=== PATIENT | male | born 1935 | race Caucasian/White ===

== ENCOUNTER 2023-10-15 18:57 | Inpatient (IN) | payer MEDICARE, OTHER ==
[~2023-10-15] VITALS: Ht 182.9 cm; Wt 72.3 kg
[2023-10-15] MEDS: NS 1,000 ML IV SCH (20:01)
[2023-10-15 20:09] LABS: BASO % 0.3 % (0.0-1.0); EOS # 0.1 10^3/uL (0.0-0.5); EOS % 0.9 % (0.0-3.0); HEMATOCRIT 38.6 % (42.0-52.0); HEMOGLOBIN 12.1 g/dl (13.5-17.5); LYMPH # 1.1 10^3/uL (1.5-5.0); LYMPH % 12.3 % (24.0-44.0); MEAN CORPUSCULAR HEMOGLOBIN 29.7 pg (27.0-33.0); MEAN CORPUSCULAR HGB CONC 31.3 g/dl (32.0-36.5); MEAN CORPUSCULAR VOLUME 94.6 fl (80.0-96.0); MONO # 0.6 10^3/uL (0.0-0.8); MONO % 6.6 % (2.0-8.0); NEUTROPHILS # 7.3 10^3/uL (1.5-8.5); NEUTROPHILS % 78.6 % (36.0-66.0); PLATELET COUNT, AUTOMATED 216 10^3/uL (150-450); RED BLOOD COUNT 4.08 10^6/uL (4.30-6.10); WHITE BLOOD COUNT 9.3 10^3/uL (4.0-10.0)
[2023-10-15 20:21] LABS: INR 1.53; PARTIAL THROMBOPLASTIN TIME 43.4 SECONDS (24.8-34.2); PROTHROMBIN TIME 17.9 SECONDS (12.5-14.5)
[2023-10-15 20:28] LABS: CK-MB VALUE MASS < 1.0 NG/ML (<3.6)
[2023-10-15 20:31] LABS: BLOOD UREA NITROGEN 53 MG/DL (9-23); CALCIUM LEVEL 8.6 MG/DL (8.3-10.6); CARBON DIOXIDE LEVEL 30 MMOL/L (20-31); CHLORIDE LEVEL 107 MMOL/L (98-107); CPK CREATINE PHOSPHOKINASE 26 U/L (46-171); CREATININE FOR GFR 1.77 MG/DL (0.70-1.30); GLOMERULAR FILTRATION RATE 38.9 (>35); GLUCOSE, FASTING 135 MG/DL (74-106); MB/CK RELATIVE INDEX 3.84 (< OR =4); POTASSIUM SERUM 3.7 MMOL/L (3.5-5.1); SODIUM LEVEL 141 MMOL/L (136-145)
[2023-10-15 21:29] LABS: CK-MB VALUE MASS < 1.0 NG/ML (<3.6)
[2023-10-15 21:30] LABS: CPK CREATINE PHOSPHOKINASE 24 U/L (46-171); MB/CK RELATIVE INDEX 4.16 (< OR =4)
[2023-10-15 22:06] VITALS: O2SAT 95
[2023-10-15] MEDS ORDERED: MAALOX 30 ML SUSP *UDC PO PRN (22:50)
[2023-10-15] MEDS ORDERED: GABA-1171 PO (23:16)
[2023-10-15] MEDS ORDERED: MEMA10TA PO (23:16)
[2023-10-15] MEDS ORDERED: FLOM0.4C39 PO (23:25)
[2023-10-15] MEDS ORDERED: ACET325C5 PO (23:25)
[2023-10-15] MEDS ORDERED: OCUV1CHW PO (23:25)
[2023-10-15] MEDS ORDERED: QUET1TAB17 PO ×2 (23:25→23:27)
[2023-10-15] MEDS ORDERED: FINA5TAB2 PO (23:25)
[2023-10-15] MEDS ORDERED: ELIQ2.5T PO (23:25)
[2023-10-15] MEDS ORDERED: HOME MED LIST COMPLETE! XX SCH (23:30)
[2023-10-15] MEDS ORDERED: QUEtiapine FUMARATE 25 MG TAB PO PRN (23:55)
[2023-10-16] VITALS (7 sets, daily range): BP systolic 92–152; BP diastolic 58–71; TEMP 96.8–97.5; O2SAT 96–98
[2023-10-16] MEDS: TAMSULOSIN 0.4 MG CAP PO SCH (08:54)
[2023-10-16] MEDS: FINASTERIDE 5MG TAB PO SCH (08:54)
[2023-10-16] MEDS: APIXABAN 2.5 MG TAB (ELIQUIS) PO SCH (08:54)
[2023-10-16] MEDS: QUEtiapine FUMARATE 25 MG TAB PO SCH (08:55)
[2023-10-16 12:47] LABS: BLOOD UREA NITROGEN 40 MG/DL (9-23); CALCIUM LEVEL 8.3 MG/DL (8.3-10.6); CARBON DIOXIDE LEVEL 27 MMOL/L (20-31); CHLORIDE LEVEL 111 MMOL/L (98-107); CREATININE FOR GFR 1.16 MG/DL (0.70-1.30); GLOMERULAR FILTRATION RATE > 60.0 (>35); GLUCOSE, FASTING 91 MG/DL (74-106); POTASSIUM SERUM 3.6 MMOL/L (3.5-5.1); SODIUM LEVEL 140 MMOL/L (136-145)
[2023-10-16] MEDS: ERYTHROMYCIN OPHTH OINT OU SCH (15:15)
[2023-10-17] VITALS (10 sets, daily range): BP systolic 112–148; BP diastolic 56–71; TEMP 97.5–98; O2SAT 93–98
[2023-10-17 05:50] LABS: HEMATOCRIT 34.2 % (42.0-52.0); HEMOGLOBIN 11.1 g/dl (13.5-17.5); MEAN CORPUSCULAR HEMOGLOBIN 30.2 pg (27.0-33.0); MEAN CORPUSCULAR HGB CONC 32.5 g/dl (32.0-36.5); MEAN CORPUSCULAR VOLUME 92.9 fl (80.0-96.0); PLATELET COUNT, AUTOMATED 206 10^3/uL (150-450); RED BLOOD COUNT 3.68 10^6/uL (4.30-6.10); WHITE BLOOD COUNT 8.3 10^3/uL (4.0-10.0)
[2023-10-17 06:21] LABS: BLOOD UREA NITROGEN 26 MG/DL (9-23); CALCIUM LEVEL 8.2 MG/DL (8.3-10.6); CARBON DIOXIDE LEVEL 25 MMOL/L (20-31); CHLORIDE LEVEL 112 MMOL/L (98-107); CREATININE FOR GFR 0.89 MG/DL (0.70-1.30); GLOMERULAR FILTRATION RATE > 60.0 (>35); GLUCOSE, FASTING 76 MG/DL (74-106); MAGNESIUM LEVEL 1.6 MG/DL (1.8-2.4); POTASSIUM SERUM 3.8 MMOL/L (3.5-5.1); SODIUM LEVEL 144 MMOL/L (136-145)
[2023-10-17] MEDS: MAG SULF 1GM/100ML (MAG RUN) 1 GM in IV 1 EA IV SCH (06:43)
[2023-10-17] MEDS: cefTRIAXone SOD 1 GM in D5W MINI-BAG PLUS 50 ML IV SCH (10:22)
[2023-10-18] VITALS: BP 115/60; TEMP 98.2; O2SAT 95
[2023-10-18 03:20] VITALS: BP 122/59; TEMP 98.1; O2SAT 94
[2023-10-18 05:57] LABS: HEMATOCRIT 32.3 % (42.0-52.0); HEMOGLOBIN 10.4 g/dl (13.5-17.5); MEAN CORPUSCULAR HEMOGLOBIN 30.2 pg (27.0-33.0); MEAN CORPUSCULAR HGB CONC 32.2 g/dl (32.0-36.5); MEAN CORPUSCULAR VOLUME 93.9 fl (80.0-96.0); PLATELET COUNT, AUTOMATED 192 10^3/uL (150-450); RED BLOOD COUNT 3.44 10^6/uL (4.30-6.10); WHITE BLOOD COUNT 8.3 10^3/uL (4.0-10.0)
[2023-10-18 06:21] LABS: BLOOD UREA NITROGEN 14 MG/DL (9-23); CARBON DIOXIDE LEVEL 26 MMOL/L (20-31); CHLORIDE LEVEL 111 MMOL/L (98-107); CREATININE FOR GFR 0.76 MG/DL (0.70-1.30); GLOMERULAR FILTRATION RATE > 60.0 (>35); GLUCOSE, FASTING 68 MG/DL (74-106); MAGNESIUM LEVEL 1.7 MG/DL (1.8-2.4); POTASSIUM SERUM 3.7 MMOL/L (3.5-5.1); SODIUM LEVEL 142 MMOL/L (136-145)
[2023-10-18 08:00] VITALS: BP 116/57; TEMP 98.6; O2SAT 97
[2023-10-18] MEDS: MAG SULF 1GM/100ML (MAG RUN) 1 GM in IV 1 EA IV ONE (09:52)
[2023-10-18 11:22] LABS: VENOUS BASE EXCESS -2.9 (-2.0-2.0); VENOUS HCO3 21.4 MMOL/L (23.0-27.0); VENOUS O2 SATURATION 98.5 % (60.0-80.0); VENOUS PARTIAL PRESSURE CO2 35.9 mmHg (38.0-50.0); VENOUS PARTIAL PRESSURE O2 134.2 mmHg (30.0-50.0); VENOUS PH 7.394 UNITS (7.330-7.430); VENOUS TOTAL CO2 22.5 MMOL/L (24.0-28.0)
[2023-10-18 12:00] VITALS: BP 112/57; TEMP 98.6; O2SAT 95
[2023-10-18] MEDS: D5W/0.45% SODIUM CHLORIDE 1,000 ML IV SCH (14:32)
[2023-10-18] MEDS: DEXTROSE 50% 50ML SYRINGE IV STA (14:32)
[2023-10-18 18:00] VITALS: BP 142/64; TEMP 97.3; O2SAT 92
[2023-10-18 21:10] VITALS: BP 141/63; TEMP 97.7; O2SAT 94
[2023-10-19 01:55] VITALS: BP 139/63; TEMP 97.5; O2SAT 94
[2023-10-19 04:10] VITALS: BP 141/64; TEMP 97.7; O2SAT 94
[2023-10-19 05:39] LABS: HEMATOCRIT 31.6 % (42.0-52.0); MEAN CORPUSCULAR HEMOGLOBIN 29.5 pg (27.0-33.0); MEAN CORPUSCULAR HGB CONC 31.6 g/dl (32.0-36.5); MEAN CORPUSCULAR VOLUME 93.2 fl (80.0-96.0); PLATELET COUNT, AUTOMATED 179 10^3/uL (150-450); RED BLOOD COUNT 3.39 10^6/uL (4.30-6.10); WHITE BLOOD COUNT 5.3 10^3/uL (4.0-10.0)
[2023-10-19 06:05] LABS: BLOOD UREA NITROGEN 9 MG/DL (9-23); CALCIUM LEVEL 7.9 MG/DL (8.3-10.6); CARBON DIOXIDE LEVEL 24 MMOL/L (20-31); CHLORIDE LEVEL 111 MMOL/L (98-107); CREATININE FOR GFR 0.71 MG/DL (0.70-1.30); GLOMERULAR FILTRATION RATE > 60.0 (>35); GLUCOSE, FASTING 109 MG/DL (74-106); MAGNESIUM LEVEL 1.8 MG/DL (1.8-2.4); POTASSIUM SERUM 3.3 MMOL/L (3.5-5.1); SODIUM LEVEL 141 MMOL/L (136-145)
[2023-10-19] MEDS ORDERED: POTASSIUM CHLORIDE 10% LIQ 20MEQ/15ML UDC PO ONE (08:00)
[2023-10-19] MEDS: KCL 10MEQ/100ML SWI (KRUN) 10 MEQ in IV 1 EA IV SCH (08:12)
[2023-10-19] MEDS: POTASSIUM CHLORIDE 10MEQ SR TABLET PO ONE (09:00)
[2023-10-19] MEDS: OLOPATADINE 0.1% OPHTH SOL 5ML(PATANOL) OU SCH (09:00)
[2023-10-19] MEDS: VANICREAM MOISTURIZING SKIN CREAM 113GM TUBE TOP SCH (10:50)
[2023-10-19 12:00] VITALS: BP 82/44; TEMP 97.5; O2SAT 93
[2023-10-19] MEDS: ARTIFICIAL TEARS DROPS 15ML BTL (VISINE DRY RELIEF) OU SCH (12:55)
[2023-10-19 14:26] VITALS: BP 103/59
[2023-10-19 20:00] VITALS: BP 123/70; TEMP 97.9; O2SAT 93
[2023-10-20 04:00] VITALS: BP 117/57; TEMP 97.9; O2SAT 95
[2023-10-20 07:17] LABS: HEMATOCRIT 32.1 % (42.0-52.0); HEMOGLOBIN 10.6 g/dl (13.5-17.5); MEAN CORPUSCULAR HEMOGLOBIN 30.5 pg (27.0-33.0); MEAN CORPUSCULAR VOLUME 92.2 fl (80.0-96.0); PLATELET COUNT, AUTOMATED 193 10^3/uL (150-450); RED BLOOD COUNT 3.48 10^6/uL (4.30-6.10); WHITE BLOOD COUNT 7.1 10^3/uL (4.0-10.0)
[2023-10-20 07:48] LABS: BLOOD UREA NITROGEN 11 MG/DL (9-23); CALCIUM LEVEL 8.4 MG/DL (8.3-10.6); CARBON DIOXIDE LEVEL 25 MMOL/L (20-31); CHLORIDE LEVEL 111 MMOL/L (98-107); CREATININE FOR GFR 0.75 MG/DL (0.70-1.30); GLOMERULAR FILTRATION RATE > 60.0 (>35); GLUCOSE, FASTING 90 MG/DL (74-106); POTASSIUM SERUM 4.1 MMOL/L (3.5-5.1); SODIUM LEVEL 142 MMOL/L (136-145)
[2023-10-20] MEDS: ACETAMINOPHEN TAB 650MG DOSE (2X325MG) PO PRN (13:50)
[2023-10-20 20:00] VITALS: BP 138/76; TEMP 97.7; O2SAT 96
[2023-10-21 04:50] VITALS: BP 140/72; TEMP 97.7; O2SAT 96
[2023-10-21 06:04] LABS: HEMATOCRIT 32.8 % (42.0-52.0); HEMOGLOBIN 10.6 g/dl (13.5-17.5); MEAN CORPUSCULAR HEMOGLOBIN 30.1 pg (27.0-33.0); MEAN CORPUSCULAR HGB CONC 32.3 g/dl (32.0-36.5); MEAN CORPUSCULAR VOLUME 93.2 fl (80.0-96.0); PLATELET COUNT, AUTOMATED 201 10^3/uL (150-450); RED BLOOD COUNT 3.52 10^6/uL (4.30-6.10); WHITE BLOOD COUNT 7.6 10^3/uL (4.0-10.0)
[2023-10-21 06:33] LABS: BLOOD UREA NITROGEN 10 MG/DL (9-23); CALCIUM LEVEL 8.3 MG/DL (8.3-10.6); CARBON DIOXIDE LEVEL 27 MMOL/L (20-31); CHLORIDE LEVEL 108 MMOL/L (98-107); GLOMERULAR FILTRATION RATE > 60.0 (>35); GLUCOSE, FASTING 66 MG/DL (74-106); POTASSIUM SERUM 3.9 MMOL/L (3.5-5.1); SODIUM LEVEL 140 MMOL/L (136-145)
[2023-10-21 12:00] VITALS: BP 120/68; TEMP 97.9; O2SAT 87
[2023-10-21 20:00] VITALS: BP 129/64; TEMP 97.7; O2SAT 98
[2023-10-22 04:00] VITALS: BP 110/70; TEMP 97.7; O2SAT 94
[2023-10-22 06:03] LABS: HEMATOCRIT 30.4 % (42.0-52.0); HEMOGLOBIN 9.8 g/dl (13.5-17.5); MEAN CORPUSCULAR HEMOGLOBIN 30.1 pg (27.0-33.0); MEAN CORPUSCULAR HGB CONC 32.2 g/dl (32.0-36.5); MEAN CORPUSCULAR VOLUME 93.3 fl (80.0-96.0); PLATELET COUNT, AUTOMATED 185 10^3/uL (150-450); RED BLOOD COUNT 3.26 10^6/uL (4.30-6.10)
[2023-10-22 06:26] LABS: BLOOD UREA NITROGEN 10 MG/DL (9-23); CARBON DIOXIDE LEVEL 28 MMOL/L (20-31); CHLORIDE LEVEL 109 MMOL/L (98-107); CREATININE FOR GFR 0.87 MG/DL (0.70-1.30); GLOMERULAR FILTRATION RATE > 60.0 (>35); GLUCOSE, FASTING 80 MG/DL (74-106); MAGNESIUM LEVEL 1.6 MG/DL (1.8-2.4); SODIUM LEVEL 140 MMOL/L (136-145)
[2023-10-22] MEDS: MAG SULF 1GM/100ML (MAG RUN) 1 GM in IV 1 EA IV SCH (07:46)
[2023-10-22 12:00] VITALS: BP 100/60; TEMP 97.2; O2SAT 90
[2023-10-22 19:30] VITALS: BP 106/56; TEMP 97.5; O2SAT 95
[2023-10-23 03:30] VITALS: BP 105/57; TEMP 97.5; O2SAT 96
[2023-10-23 05:03] LABS: HEMATOCRIT 29.4 % (42.0-52.0); HEMOGLOBIN 9.5 g/dl (13.5-17.5); MEAN CORPUSCULAR HEMOGLOBIN 30.4 pg (27.0-33.0); MEAN CORPUSCULAR HGB CONC 32.3 g/dl (32.0-36.5); MEAN CORPUSCULAR VOLUME 94.2 fl (80.0-96.0); PLATELET COUNT, AUTOMATED 212 10^3/uL (150-450); RED BLOOD COUNT 3.12 10^6/uL (4.30-6.10); WHITE BLOOD COUNT 6.2 10^3/uL (4.0-10.0)
[2023-10-23 05:31] LABS: BLOOD UREA NITROGEN 13 MG/DL (9-23); CALCIUM LEVEL 8.2 MG/DL (8.3-10.6); CARBON DIOXIDE LEVEL 25 MMOL/L (20-31); CHLORIDE LEVEL 110 MMOL/L (98-107); CREATININE FOR GFR 0.82 MG/DL (0.70-1.30); GLOMERULAR FILTRATION RATE > 60.0 (>35); GLUCOSE, FASTING 79 MG/DL (74-106); POTASSIUM SERUM 4.1 MMOL/L (3.5-5.1); SODIUM LEVEL 139 MMOL/L (136-145)
[2023-10-23] MEDS: GABAPENTIN 100 MG CAP PO PRN (08:44)
[2023-10-23 10:43] LABS: ALBUMIN 1.9 G/DL (3.2-5.2)
[2023-10-23] MEDS: MAGNESIUM OXIDE 400MG TAB (MAG-OX) PO SCH (11:30)
[2023-10-23 12:00] VITALS: BP 95/56; TEMP 97.5; O2SAT 95
[2023-10-23 19:48] VITALS: BP 135/64; TEMP 97.5; O2SAT 97
[2023-10-24 04:00] VITALS: BP 129/63; TEMP 97.5; O2SAT 96
[2023-10-24 06:03] LABS: HEMATOCRIT 31.4 % (42.0-52.0); MEAN CORPUSCULAR HEMOGLOBIN 29.9 pg (27.0-33.0); MEAN CORPUSCULAR HGB CONC 31.8 g/dl (32.0-36.5); MEAN CORPUSCULAR VOLUME 93.7 fl (80.0-96.0); PLATELET COUNT, AUTOMATED 216 10^3/uL (150-450); RED BLOOD COUNT 3.35 10^6/uL (4.30-6.10); WHITE BLOOD COUNT 4.3 10^3/uL (4.0-10.0)
[2023-10-24 06:26] LABS: BLOOD UREA NITROGEN 14 MG/DL (9-23); CALCIUM LEVEL 8.4 MG/DL (8.3-10.6); CARBON DIOXIDE LEVEL 28 MMOL/L (20-31); CHLORIDE LEVEL 109 MMOL/L (98-107); CREATININE FOR GFR 0.87 MG/DL (0.70-1.30); GLOMERULAR FILTRATION RATE > 60.0 (>35); GLUCOSE, FASTING 81 MG/DL (74-106); POTASSIUM SERUM 4.1 MMOL/L (3.5-5.1); SODIUM LEVEL 141 MMOL/L (136-145)
[2023-10-24 12:00] VITALS: BP 93/52; TEMP 97.3; O2SAT 95
[2023-10-24 16:12] VITALS: BP 120/62; TEMP 98.1; O2SAT 94
[2023-10-24 20:26] VITALS: BP 111/63; TEMP 97.7; O2SAT 96
[2023-10-25 04:09] VITALS: BP 95/50; TEMP 97.9; O2SAT 92
[2023-10-25 08:18] LABS: BASO % 0.4 % (0.0-1.0); EOS # 0.1 10^3/uL (0.0-0.5); EOS % 2.8 % (0.0-3.0); HEMATOCRIT 28.7 % (42.0-52.0); HEMOGLOBIN 9.4 g/dl (13.5-17.5); LYMPH # 1.4 10^3/uL (1.5-5.0); LYMPH % 28.3 % (24.0-44.0); MEAN CORPUSCULAR HEMOGLOBIN 30.9 pg (27.0-33.0); MEAN CORPUSCULAR HGB CONC 32.8 g/dl (32.0-36.5); MEAN CORPUSCULAR VOLUME 94.4 fl (80.0-96.0); MONO # 0.6 10^3/uL (0.0-0.8); MONO % 11.1 % (2.0-8.0); NEUTROPHILS # 2.9 10^3/uL (1.5-8.5); NEUTROPHILS % 56.6 % (36.0-66.0); PLATELET COUNT, AUTOMATED 232 10^3/uL (150-450); RED BLOOD COUNT 3.04 10^6/uL (4.30-6.10); WHITE BLOOD COUNT 5.1 10^3/uL (4.0-10.0)
[2023-10-25 09:06] LABS: BLOOD UREA NITROGEN 15 MG/DL (9-23); CALCIUM LEVEL 8.5 MG/DL (8.3-10.6); CARBON DIOXIDE LEVEL 29 MMOL/L (20-31); CHLORIDE LEVEL 109 MMOL/L (98-107); CREATININE FOR GFR 0.82 MG/DL (0.70-1.30); GLOMERULAR FILTRATION RATE > 60.0 (>35); GLUCOSE, FASTING 79 MG/DL (74-106); MAGNESIUM LEVEL 1.9 MG/DL (1.8-2.4); SODIUM LEVEL 139 MMOL/L (136-145)
[2023-10-25 12:00] VITALS: BP 108/90; TEMP 97.3; O2SAT 94
[2023-10-25] MEDS: MIRTAZAPINE 7.5MG PER 1/2 TABLET PO SCH (18:03)
[2023-10-25 19:30] VITALS: BP 120/60; TEMP 97.7; O2SAT 95
[2023-10-26 04:00] VITALS: BP 126/62; TEMP 98.1; O2SAT 92
[2023-10-26 05:33] LABS: BASO % 0.4 % (0.0-1.0); EOS # 0.2 10^3/uL (0.0-0.5); EOS % 2.4 % (0.0-3.0); HEMATOCRIT 32.3 % (42.0-52.0); HEMOGLOBIN 10.3 g/dl (13.5-17.5); LYMPH # 1.5 10^3/uL (1.5-5.0); LYMPH % 21.7 % (24.0-44.0); MEAN CORPUSCULAR HEMOGLOBIN 30.3 pg (27.0-33.0); MEAN CORPUSCULAR HGB CONC 31.9 g/dl (32.0-36.5); MONO # 0.6 10^3/uL (0.0-0.8); MONO % 8.9 % (2.0-8.0); NEUTROPHILS # 4.5 10^3/uL (1.5-8.5); NEUTROPHILS % 65.9 % (36.0-66.0); PLATELET COUNT, AUTOMATED 253 10^3/uL (150-450); WHITE BLOOD COUNT 6.8 10^3/uL (4.0-10.0)
[2023-10-26 06:00] LABS: BLOOD UREA NITROGEN 15 MG/DL (9-23); CALCIUM LEVEL 8.9 MG/DL (8.3-10.6); CARBON DIOXIDE LEVEL 30 MMOL/L (20-31); CHLORIDE LEVEL 107 MMOL/L (98-107); CREATININE FOR GFR 0.93 MG/DL (0.70-1.30); GLOMERULAR FILTRATION RATE > 60.0 (>35); GLUCOSE, FASTING 74 MG/DL (74-106); POTASSIUM SERUM 5.2 MMOL/L (3.5-5.1); SODIUM LEVEL 140 MMOL/L (136-145)
[2023-10-26] MEDS ORDERED: IPRATROPIUM 0.5MG/ALBUTEROL 2.5MG INH SOL UD 3ML (DUONEB) NEB PRN (08:40)
[2023-10-26] MEDS ORDERED: guaiFENesin ER TABLET 600 MG TAB PO SCH (09:00)
[2023-10-26] MEDS: SOD POLYSTYRENE SULFONATE SUSP 15GM 60ML UD PO ONE (09:34)
[2023-10-26] MEDS: IPRATROPIUM 0.5MG/ALBUTEROL 2.5MG INH SOL UD 3ML (DUONEB) NEB SCH (10:08)
[2023-10-26 10:58] VITALS: BP 128/69; TEMP 97.7; O2SAT 95
[2023-10-26 12:03] VITALS: BP 92/48; TEMP 97.7; O2SAT 95
[2023-10-26] MEDS: guaiFENesin SYRUP 200MG 10ML UDC PO SCH (12:55)
[2023-10-26 20:00] VITALS: BP 117/55; TEMP 97.7; O2SAT 97
[2023-10-27 03:20] VITALS: BP 112/59; TEMP 97.9; O2SAT 90
[2023-10-27 05:43] LABS: BASO % 0.4 % (0.0-1.0); EOS # 0.1 10^3/uL (0.0-0.5); EOS % 1.8 % (0.0-3.0); HEMATOCRIT 34.2 % (42.0-52.0); HEMOGLOBIN 10.9 g/dl (13.5-17.5); LYMPH # 1.4 10^3/uL (1.5-5.0); LYMPH % 20.2 % (24.0-44.0); MEAN CORPUSCULAR HGB CONC 31.9 g/dl (32.0-36.5); MEAN CORPUSCULAR VOLUME 94.2 fl (80.0-96.0); MONO # 0.6 10^3/uL (0.0-0.8); MONO % 8.4 % (2.0-8.0); NEUTROPHILS # 4.5 10^3/uL (1.5-8.5); NEUTROPHILS % 67.6 % (36.0-66.0); PLATELET COUNT, AUTOMATED 258 10^3/uL (150-450); RED BLOOD COUNT 3.63 10^6/uL (4.30-6.10); WHITE BLOOD COUNT 6.7 10^3/uL (4.0-10.0)
[2023-10-27 06:11] LABS: BLOOD UREA NITROGEN 14 MG/DL (9-23); CALCIUM LEVEL 8.9 MG/DL (8.3-10.6); CARBON DIOXIDE LEVEL 30 MMOL/L (20-31); CHLORIDE LEVEL 103 MMOL/L (98-107); CREATININE FOR GFR 0.86 MG/DL (0.70-1.30); GLOMERULAR FILTRATION RATE > 60.0 (>35); GLUCOSE, FASTING 73 MG/DL (74-106); POTASSIUM SERUM 4.6 MMOL/L (3.5-5.1); SODIUM LEVEL 137 MMOL/L (136-145)
[2023-10-27 12:00] VITALS: BP 109/60; TEMP 97.7; O2SAT 94
[2023-10-27 19:40] VITALS: BP 129/75; TEMP 97.3; O2SAT 95
[2023-10-28 04:00] VITALS: BP 122/73; TEMP 97.1; O2SAT 93
[2023-10-28 06:06] LABS: BASO % 0.4 % (0.0-1.0); EOS # 0.2 10^3/uL (0.0-0.5); EOS % 2.6 % (0.0-3.0); LYMPH # 1.2 10^3/uL (1.5-5.0); LYMPH % 16.4 % (24.0-44.0); MEAN CORPUSCULAR HEMOGLOBIN 29.7 pg (27.0-33.0); MEAN CORPUSCULAR HGB CONC 31.4 g/dl (32.0-36.5); MEAN CORPUSCULAR VOLUME 94.6 fl (80.0-96.0); MONO # 0.8 10^3/uL (0.0-0.8); MONO % 10.8 % (2.0-8.0); NEUTROPHILS % 68.4 % (36.0-66.0); PLATELET COUNT, AUTOMATED 255 10^3/uL (150-450); WHITE BLOOD COUNT 7.2 10^3/uL (4.0-10.0)
[2023-10-28 06:33] LABS: BLOOD UREA NITROGEN 21 MG/DL (9-23); CALCIUM LEVEL 8.8 MG/DL (8.3-10.6); CARBON DIOXIDE LEVEL 28 MMOL/L (20-31); CHLORIDE LEVEL 103 MMOL/L (98-107); CREATININE FOR GFR 0.96 MG/DL (0.70-1.30); GLOMERULAR FILTRATION RATE > 60.0 (>35); GLUCOSE, FASTING 74 MG/DL (74-106); MAGNESIUM LEVEL 2.1 MG/DL (1.8-2.4); POTASSIUM SERUM 4.6 MMOL/L (3.5-5.1); SODIUM LEVEL 136 MMOL/L (136-145)
[2023-10-28] MEDS: QUEtiapine FUMARATE 25 MG TAB PO ONE (09:44)
[2023-10-28 12:00] VITALS: BP 100/56; TEMP 97.7; O2SAT 94
[2023-10-28 19:27] VITALS: BP 110/63; TEMP 98.2; O2SAT 94
[2023-10-28] MEDS: QUEtiapine FUMARATE 25 MG TAB PO SCH (19:37)
[2023-10-29 03:39] VITALS: BP 95/59; TEMP 98.1; O2SAT 92
[2023-10-29 05:09] LABS: BASO % 0.4 % (0.0-1.0); EOS # 0.2 10^3/uL (0.0-0.5); EOS % 2.8 % (0.0-3.0); HEMATOCRIT 32.4 % (42.0-52.0); HEMOGLOBIN 10.3 g/dl (13.5-17.5); LYMPH # 1.1 10^3/uL (1.5-5.0); MEAN CORPUSCULAR HEMOGLOBIN 30.2 pg (27.0-33.0); MEAN CORPUSCULAR HGB CONC 31.8 g/dl (32.0-36.5); MONO # 0.7 10^3/uL (0.0-0.8); MONO % 12.4 % (2.0-8.0); NEUTROPHILS # 3.5 10^3/uL (1.5-8.5); NEUTROPHILS % 62.6 % (36.0-66.0); PLATELET COUNT, AUTOMATED 254 10^3/uL (150-450); RED BLOOD COUNT 3.41 10^6/uL (4.30-6.10); WHITE BLOOD COUNT 5.7 10^3/uL (4.0-10.0)
[2023-10-29 05:31] LABS: BLOOD UREA NITROGEN 21 MG/DL (9-23); CALCIUM LEVEL 8.6 MG/DL (8.3-10.6); CARBON DIOXIDE LEVEL 30 MMOL/L (20-31); CHLORIDE LEVEL 102 MMOL/L (98-107); CREATININE FOR GFR 1.04 MG/DL (0.70-1.30); GLOMERULAR FILTRATION RATE > 60.0 (>35); GLUCOSE, FASTING 95 MG/DL (74-106); MAGNESIUM LEVEL 2.2 MG/DL (1.8-2.4); POTASSIUM SERUM 4.5 MMOL/L (3.5-5.1); SODIUM LEVEL 135 MMOL/L (136-145)
[2023-10-29] MEDS: QUEtiapine FUMARATE 25 MG TAB PO SCH (08:18)
[2023-10-29] MEDS ORDERED: QUEtiapine FUMARATE 50MG TAB PO SCH (09:00)
[2023-10-29 12:00] VITALS: BP 109/59; TEMP 97.5; O2SAT 93
[2023-10-29 19:24] VITALS: BP 92/51; TEMP 98.1; O2SAT 91
[2023-10-30 04:00] VITALS: BP 94/55; TEMP 97.9; O2SAT 91
[2023-10-30 06:24] LABS: BASO % 0.3 % (0.0-1.0); EOS # 0.2 10^3/uL (0.0-0.5); EOS % 2.5 % (0.0-3.0); HEMATOCRIT 33.5 % (42.0-52.0); HEMOGLOBIN 10.4 g/dl (13.5-17.5); LYMPH # 1.3 10^3/uL (1.5-5.0); LYMPH % 18.6 % (24.0-44.0); MEAN CORPUSCULAR HEMOGLOBIN 29.3 pg (27.0-33.0); MEAN CORPUSCULAR VOLUME 94.4 fl (80.0-96.0); MONO # 0.7 10^3/uL (0.0-0.8); MONO % 10.7 % (2.0-8.0); NEUTROPHILS # 4.5 10^3/uL (1.5-8.5); NEUTROPHILS % 66.3 % (36.0-66.0); PLATELET COUNT, AUTOMATED 258 10^3/uL (150-450); RED BLOOD COUNT 3.55 10^6/uL (4.30-6.10); WHITE BLOOD COUNT 6.8 10^3/uL (4.0-10.0)
[2023-10-30 06:47] LABS: BLOOD UREA NITROGEN 24 MG/DL (9-23); CALCIUM LEVEL 9.2 MG/DL (8.3-10.6); CARBON DIOXIDE LEVEL 30 MMOL/L (20-31); CHLORIDE LEVEL 104 MMOL/L (98-107); CREATININE FOR GFR 1.15 MG/DL (0.70-1.30); GLOMERULAR FILTRATION RATE > 60.0 (>35); GLUCOSE, FASTING 92 MG/DL (74-106); MAGNESIUM LEVEL 2.5 MG/DL (1.8-2.4); POTASSIUM SERUM 4.4 MMOL/L (3.5-5.1); SODIUM LEVEL 140 MMOL/L (136-145)
[2023-10-30 11:52] VITALS: BP 96/56; TEMP 98.4; O2SAT 98
[2023-10-30 20:22] VITALS: BP 109/62; TEMP 98.2; O2SAT 92
[2023-10-31 04:02] VITALS: BP 100/56; TEMP 97.7; O2SAT 92
[2023-10-31 11:31] VITALS: BP 106/58; TEMP 97.7; O2SAT 94
[2023-10-31] MEDS ORDERED: guaiFENesin SYRUP 200MG 10ML UDC PO PRN (18:35)
[2023-10-31 20:00] VITALS: BP 104/65; TEMP 97.9; O2SAT 94
[2023-11-01] MEDS ORDERED: PERMETHRIN 5% CREAM 60 GM TOP SCH
[2023-11-01 04:30] VITALS: BP 104/65; TEMP 98; O2SAT 95
[2023-11-01] MEDS ORDERED: MIRT-10 PO (07:19)
[2023-11-01] MEDS ORDERED: ATIV1TAB7 PO (07:38)
[2023-11-01] MEDS ORDERED: MORP1SOL PO (07:38)
[2023-11-01 12:00] VITALS: BP 105/64; TEMP 97.7; O2SAT 98
[2023-11-01] MEDS: PERMETHRIN 5% CREAM 60 GM TOP ONE (17:54)
[2023-11-01 20:00] VITALS: BP 102/63; TEMP 97.5; O2SAT 96
[2023-11-02] MEDS: MOM 30ML SUSPENSION UDC PO PRN (05:52)
== END 2023-11-02 15:28 | DRG 689 ==
LOC: M ED 18:57 → EDBD 18:57 → M ED INP 23:08 → M MSPAV 10-16 00:14
PROVIDERS: ADMIT Student in an Organized Health Care Education/Training Program; ATTEND Internal Medicine
DX: N39.0 Urinary tract infection, site not specified (principal); G93.41 Metabolic encephalopathy; N17.9 Acute kidney failure, unspecified; F02.818 Dementia in other diseases classified elsewhere, unspecified severity, with other behavioral disturbance; Z66 Do not resuscitate; B96.20 Unspecified Escherichia coli [E. coli] as the cause of diseases classified elsewhere; G30.9 Alzheimer's disease, unspecified; I73.9 Peripheral vascular disease, unspecified; L89.152 Pressure ulcer of sacral region, stage 2; K59.00 Constipation, unspecified; D64.9 Anemia, unspecified; H40.9 Unspecified glaucoma; R73.03 Prediabetes; R13.10 Dysphagia, unspecified; H57.02 Anisocoria; S30.0XXA Contusion of lower back and pelvis, initial encounter; W01.0XXA Fall on same level from slipping, tripping and stumbling without subsequent striking against object, initial encounter; Y92.009 Unspecified place in unspecified non-institutional (private) residence as the place of occurrence of the external cause; R00.1 Bradycardia, unspecified; N40.1 Benign prostatic hyperplasia with lower urinary tract symptoms; M79.2 Neuralgia and neuritis, unspecified; Z86.718 Personal history of other venous thrombosis and embolism; Z87.891 Personal history of nicotine dependence; Z79.01 Long term (current) use of anticoagulants; Z79.899 Other long term (current) drug therapy; Z88.2 Allergy status to sulfonamides; Z88.8 Allergy status to other drugs, medicaments and biological substances; H10.9 Unspecified conjunctivitis; R29.6 Repeated falls; E86.0 Dehydration; E83.42 Hypomagnesemia; E83.51 Hypocalcemia; N13.9 Obstructive and reflux uropathy, unspecified; E88.09 Other disorders of plasma-protein metabolism, not elsewhere classified; E87.6 Hypokalemia; E87.5 Hyperkalemia